=== PATIENT | male | born 1965 | race Two or more races ===

== ENCOUNTER 2020-05-16 15:19 | Inpatient (IN) | payer MEDICAID ==
[~2020-05-16] VITALS: Ht 165.1 cm; Wt 52.2 kg
[2020-05-16] MEDS ORDERED: IV NS 0.9% 1,000 ML BAG IV ONE (16:30)
[2020-05-16] MEDS ORDERED: KETOROLAC TROMETHAMINE INJ 30 MG/ML VIAL IV ONE (16:30)
[2020-05-16] MEDS ORDERED: ONDANSETRON HCL/PF 4 MG/2 ML VIAL IVP ONE (17:00)
[2020-05-16] MEDS ORDERED: CEFTRIAXONE 1GM BAG (ER ONLY) 1 GM/50 ML PIGGYBACK IV ONE (17:00)
[2020-05-16] MEDS ORDERED: MORPHINE SULFATE INJ 2 MG/ML DISP.SYRIN IV ONE (17:00)
[2020-05-16 17:07] LABS: BASOPHILS # (AUTO) 0.1 /CMM (0.0-0.2); BASOPHILS % (AUTO) 0.5 % (0.0-2.0); EOSINOPHILS % (AUTO) 0.1 % (0.0-6.0); HEMATOCRIT 42 % (39-51); HEMOGLOBIN 13.6 g/dL (13.5-17.5); LYMPHOCYTES # (AUTO) 1.6 /CMM (0.8-4.8); LYMPHOCYTES % (AUTO) 7.2 % (20.0-44.0); MEAN CORPUSCULAR HGB CONC 33 g/dl (31.0-36.0); MEAN CORPUSCULAR VOLUME 94 fL (80-96); MONOCYTES # (AUTO) 1.9 /CMM (0.1-1.30); MONOCYTES % (AUTO) 8.6 % (2.0-12.0); NEUTROPHILS # (AUTO) 18.3 /CMM (1.8-8.9); NEUTROPHILS % (AUTO) 83.6 % (43.0-81.0); PLATELET COUNT (AUTO) 244 /CMM (150-450); RED BLOOD CELL COUNT(AUTO) 4.42 MIL/uL (4.5-6.0); WHITE BLOOD COUNT (AUTO) 21.8 K/uL (4.3-11.0)
[2020-05-16 17:11] LABS: BILIRUBIN,URINE Negative (NEGATIVE); BLOOD, URINE Moderate Ery/uL (NEGATIVE); COLOR,URINE DARK YELLOW (YELLOW); LEUKOCYTE ESTERASE ,URINE Small (NEGATIVE); NITRITE, URINE Positive (NEGATIVE); PROTEIN,URINE 100 mg/dl (NEGATIVE); UGLUCOSE Negative (NEGATIVE); UROBILINOGEN,URINE >=8.0 EU/dL (0.2)
[2020-05-16 17:24] LABS: BACTERIA,URINE 3+ /HPF (None Seen); RBC,URINE 21-50 /HPF (0-2); SQUAMOUS EPITHELIAL CELL,UR Few /HPF (None Seen)
[2020-05-16] MEDS ORDERED: MORPHINE SULFATE INJ 4 MG/ML DISP.SYRIN ONE (17:24)
[2020-05-16] MEDS ORDERED: ONDANSETRON HCL/PF 4 MG/2 ML VIAL ONE (17:24)
[2020-05-16] MEDS ORDERED: CEFTRIAXONE 1GM BAG (ER ONLY) 50 ML IV ONE (17:24)
[2020-05-16] MEDS ORDERED: KETOROLAC TROMETHAMINE 15 MG/ML VIAL ONE (17:24)
[2020-05-16 17:30] LABS: ALBUMIN 3.6 g/dL (3.4-5.0); BILIRUBIN,DIRECT 0.3 mg/dL (0.0-0.2); BILIRUBIN,TOTAL 1.5 mg/dL (0.2-1.0); CREATININE 1.1 mg/dL (0.6-1.3); POTASSIUM 3.9 mmol/L (3.5-5.1)
[2020-05-16] MEDS ORDERED: IV NS 0.9% 250 ML IV ONE (17:39)
[2020-05-16] MEDS ORDERED: IOHEXOL-300 100 ML VIAL IV ONE (17:39)
[2020-05-16] MEDS ORDERED: DOXYCYCLINE 100 MG in IV D5W 100 ML IV ONE (19:00)
--- NOTE | 2020-05-16 19:05 | NUR ---
PT CAME TO THE ER EARLIER TODAY FOR TESTICULAR PAIN AND SWELLING. PT DENIES PAIN AT THIS TIME. PT AAOX4, VSS, RESPIRATIONS EVEN AND UNLABORED ON RA W/ NAD NOTED. PT CONNECTED TO THE MONITOR AND POX
[2020-05-16] MEDS ORDERED: DOXYCYCLINE 100 MG VIAL ONE (19:28)
[2020-05-16] MEDS ORDERED: MORPHINE SULFATE INJ 2 MG/ML DISP.SYRIN IV PRN (20:30)
[2020-05-16] MEDS ORDERED: ONDANSETRON HCL/PF 4 MG/2 ML VIAL IVP PRN (20:30)
[2020-05-16] MEDS ORDERED: ACETAMINOPHEN 325 MG TABLET PO PRN (20:30)
[2020-05-16] MEDS ORDERED: Z GUARD REMEDY 2 OZ OINT TP PRN (20:30)
[2020-05-16] MEDS ORDERED: MAG HYDROX/AL HYDROX/SIMETH 30 ML UDC PO PRN (20:30)
[2020-05-16] MEDS ORDERED: MAGNESIUM HYDROXIDE 30 ML UDC PO PRN (20:30)
[2020-05-16 22:00] VITALS: BP 115/65
--- NOTE | 2020-05-16 22:03 | NUR ---
PT TRANSFERRED TO ROOM IN STABLE CONDITION
--- NOTE | 2020-05-16 22:10 | NUR ---
MS MONUMENT LETTERER NOTES: ADMITTED A 54YO PLEASANT MALE FROM HOME THROUGH OUR ED FOR SCROTAL SWELLING. PATIENT DIAGNOSED TO HAVE ORCHITIS PER ULTRASOUND. PATIENT DID NOT REPORT OF ANY PAIN AT THIS TIME HE HAD THE PAIN MEDS FROM THE ER. IVF OF NS AT 75ML/HR STARTED. ADMISSION ASSESSMENTS DONE. PROVIDED PATIENT WITH SNACKS AND FLUIDS TOLERATED. ALL OTHER ORDERS BY DR. VALDOVINOS CARRIED OUT. PATIENT PARTNER AND [facility] ILA [phone] UPDATED OF PATIENT'S STATUS. INSTRUCTED HIM TO FAX THE PATIENT'S ADVANCE DIRECTIVES. WILL MONITOR PATIENT
[2020-05-16] MEDS: IV NS 0.9% 1,000 ML IV PRN (22:52)
[2020-05-17] VITALS: BP 127/72
--- NOTE | 2020-05-17 06:19 | NUR ---
MS RN CLOSING NOTES: PATIENT ASLEEP SOUNDLY IN THE ROOM, IVF ON GOING. NO COMPLAINS OF PAIN AT THIS TIME, WILL MONITOR PATIENTS PAIN STATUS. PATIENT AGREED TO PROVIDE HIS MEDICATION LIST FOR RECON. WILL ENDORSE PATIENT DAY SHIFT NURSE FOR CONTINUITY OF CARE.
[2020-05-17 06:22] LABS: BASOPHILS # (AUTO) 0.1 /CMM (0.0-0.2); BASOPHILS % (AUTO) 0.4 % (0.0-2.0); EOSINOPHILS % (AUTO) 0.7 % (0.0-6.0); HEMATOCRIT 36 % (39-51); HEMOGLOBIN 12.2 g/dL (13.5-17.5); LYMPHOCYTES # (AUTO) 1.5 /CMM (0.8-4.8); LYMPHOCYTES % (AUTO) 9.7 % (20.0-44.0); MEAN CORPUSCULAR HGB CONC 34 g/dl (31.0-36.0); MEAN CORPUSCULAR VOLUME 93 fL (80-96); MONOCYTES # (AUTO) 1.3 /CMM (0.1-1.30); MONOCYTES % (AUTO) 8.2 % (2.0-12.0); PLATELET COUNT (AUTO) 204 /CMM (150-450); RED BLOOD CELL COUNT(AUTO) 3.88 MIL/uL (4.5-6.0)
[2020-05-17 06:42] LABS: CALCIUM, SERUM 8.1 mg/dL (8.5-10.1); CREATININE 1.2 mg/dL (0.6-1.3); MAGNESIUM 2.1 mg/dL (1.8-2.4); POTASSIUM 3.9 mmol/L (3.5-5.1)
[2020-05-17] MEDS ORDERED: RITO100T PO (06:58)
[2020-05-17] MEDS ORDERED: DARU800T2 PO (06:58)
[2020-05-17] MEDS ORDERED: EMTR1TAB12 PO (06:58)
--- NOTE | 2020-05-17 07:45 | NUR ---
RN OPENING NOTE: RECEIVED PT LYING IN BED. NO ACUTE DISTRESS NOTED. PT A+OX3, ABLE TO MAKE NEEDS KNOWN. DENIES PAIN AT PRESENT TIME. INDEPENDENT WITH REPOSITIONING IN BED AND PO INTAKE. CONTINENT WITH URINAL AT BEDSIDE. SHAD CLOUDY URINE. RIGHT AC # 20 INFUSING AT 75 CC/HR. NO S/SX OF INFILTRATION OR INFECTION AT RIGHT. BED IN LOW AND LOCKED POSITION WITH SIDE RAILS UP X 2 and call light within reach.
[2020-05-17 08:00] VITALS: BP 121/92
[2020-05-17] MEDS: DOXYCYCLINE 100 MG in IV D5W 100 ML IV SCH ×2 (09:26→21:08)
[2020-05-17 16:00] VITALS: BP 130/71
[2020-05-17] MEDS ORDERED: K PHOS NEUTRAL 250 MG TABLET PO ONE (16:00)
[2020-05-17] MEDS: CEFTRIAXONE 1 G in IV D5W 50 ML IV SCH (17:23)
[2020-05-17] MEDS: IV NS 0.9% 1,000 ML IV PRN (18:48)
--- NOTE | 2020-05-17 19:25 | NUR ---
TELERN FULLY AWAKE, DENIES ANY DISCOMFORTS. PRESENT FLUIDS INFUSING WELL VIA LEFT FA. PLAN OF CARE DISCUSSED WITH PATIENT. SAFETY PRECAUTIONS EMPHASIZED. CALL LIGHT USE REVIEWED WITH PATIENT REMINDED TO CALL STAFF FOR ANY ASSISTANCE OR DISCOMFORTS.
[2020-05-17 20:00] VITALS: BP 106/75
--- NOTE | 2020-05-17 20:00 | NUR ---
RN NOTE: SPOKE WITH ILA, PT'S DPOA. ILA TO BRING IN HOME MEDICATIONS IN AM. ILA ALSO EMPHASIZED THE NEED FOR PT TO RECEIVE FLU VACCINE WHILE IN HOSPITAL.
[2020-05-17 20:30] VITALS: BP 106/75
[2020-05-17] MEDS: HYDROCODONE/APAP 5/325MG TABLET PO PRN (21:22)
--- NOTE | 2020-05-18 01:00 | NUR ---
TELERN WANTED TO SIGN OUT AMA. EXPLAINED RISK, DETERMINED TO LEAVE. AGREED TO STAY AND BE TRANSFERRED TO ANOTHER QUIET ROOM. SIGNED WAIVER FOR SMOKE. WENT OUT TO SMOKE FOR FEW MINUTES WITH SENIOR SITE MANAGER.
--- NOTE | 2020-05-18 02:10 | NUR ---
TELERN SLEEPING IVF CONTINUED.
--- NOTE | 2020-05-18 07:00 | NUR ---
MSRN STABLE. NO NEEDS MADE.
--- NOTE | 2020-05-18 07:26 | NUR ---
MS RN NOTES PATIENT RECEIVED IN BED SLEEPING EASILY AWAKEN BY NAME AND LIGHT TOUCH, ALERT AND ORIENTED X 4. ON ROOM AIR WITH NO SIGNS OF RESPIRATORY DISTRESS WITH EVEN NON-LABORED BREATHING, AND NO SOB NOTED. IV ACCESS INTACT AND PATENT. SKIN WARM AND DRY TO TOUCH. PATIENT PRESENTING WITH NO PAIN OR DISCOMFORT AT THIS TIME. SAFETY PRECAUTIONS IMPLEMENTED WITH BED LOCKED, BED ALARM ON, BED IN THE LOWEST POSITION, BILATERAL SIDE RAILS UP, AND CALL LIGHT WITHIN EASY REACH OF THE PATIENT. WILL CONTINUE TO MONITOR PATIENT.
[2020-05-18 08:00] VITALS: BP 114/69
[2020-05-18 08:41] LABS: CALCIUM, SERUM 8.8 mg/dL (8.5-10.1); PHOSPHORUS 2.7 mg/dL (2.5-4.9)
[2020-05-18] MEDS: DOXYCYCLINE 100 MG in IV D5W 100 ML IV SCH ×2 (08:46→20:57)
[2020-05-18] MEDS: IV NS 0.9% 1,000 ML IV PRN (08:47)
[2020-05-18 16:00] VITALS: BP 138/80
[2020-05-18] MEDS: CEFTRIAXONE 1 G in IV D5W 50 ML IV SCH (16:34)
--- NOTE | 2020-05-18 18:25 | NUR ---
MS RN NOTES PATIENT'S HAD SOMEONE DROP OFF HIS HOME MEDICATIONS DUE TO DRUG NOT BEING AVAILABLE.
--- NOTE | 2020-05-18 18:31 | NUR ---
MS RN NOTES PATIENT IN BED RESTING COMFORTABLY, ALERT AND ORIENTED X 4. ON ROOM AIR WITH NO SIGNS OF RESPIRATORY DISTRESS WITH EVEN NON-LABORED BREATHING, AND NO SOB NOTED. IV ACCESS INTACT AND PATENT. SKIN KEPT CLEAN, WARM AND DRY TO TOUCH. PATIENT PRESENTING WITH NO PAIN OR DISCOMFORT AT THIS TIME. MET ALL OF PATIENT'S NEEDS. SAFETY PRECAUTIONS IMPLEMENTED WITH BED LOCKED, BED ALARM ON, BED IN THE LOWEST POSITION, BILATERAL SIDE RAILS UP, AND CALL LIGHT WITHIN EASY REACH OF THE PATIENT. WILL ENDORSE PLAN OF CARE TO UPCOMING RN.
--- NOTE | 2020-05-18 19:55 | NUR ---
RN NOTES: PT. RESTING HIS BED AWAKE, DENIES ANY DISCOMFORTS. PRESENT FLUIDS INFUSING WELL VIA LEFT FA. PLAN OF CARE DISCUSSED WITH PATIENT. SAFETY PRECAUTIONS EMPHASIZED. CALL LIGHT USE REVIEWED WITH PATIENT REMINDED TO CALL STAFF FOR ANY ASSISTANCE OR DISCOMFORTS.
[2020-05-18 20:00] VITALS: BP 126/78
[2020-05-18 20:20] VITALS: BP 123/78
[2020-05-18] MEDS: PREZISTA 800 MG PO SCH (21:15)
[2020-05-18] MEDS: TRUVADA PO SCH (21:15)
[2020-05-18] MEDS: NORVIR 100 MG PO SCH (21:15)
--- NOTE | 2020-05-18 22:46 | NUR ---
RN NOTES: PT. REFUSED IV 0.9% NS ,ENCOURAGED X3 RISKS AND BENEFITS EXPLINED , CHARGE NURSE MADE AWRE ,PER PT. I NO NEEDS ANY IV FLUIDS I AM OK ,PT. STRONGLY REDUSED ,WILL CONTINUITY WITH CARE.
[2020-05-18] MEDS: HYDROCODONE/APAP 5/325MG TABLET PO PRN (23:35)
--- NOTE | 2020-05-19 06:48 | NUR ---
MS RN CLOSING NOTES: PATIENT ASLEEP SOUNDLY IN THE ROOM, NO ACUTE DISTRESS NOTED , NO CHANGE OF CONDITION NOTED, NO COMPLAINS OF PAIN AT THIS TIME, WILL MONITOR PATIENTS PAIN STATUS. WILL ENDORSE PATIENT DAY SHIFT NURSE FOR CONTINUITY OF CARE.
--- NOTE | 2020-05-19 07:35 | NUR ---
MS RN NOTES PATIENT RECEIVED IN BED SLEEPING EASILY AWAKEN BY NAME AND LIGHT TOUCH, ALERT AND ORIENTED X 4. ON ROOM AIR WITH NO SIGNS OF RESPIRATORY DISTRESS WITH EVEN NON-LABORED BREATHING, AND NO SOB NOTED. IV ACCESS INTACT AND PATENT. PATIENT CURRENTLY REFUSING IV FLUIDS, ENCOURAGED AND BENEFITS OF IV FLUIDS, PATIENT AGREED, AND CURRENTLY INFUSING IV NORMAL SALINE AT 75 ml/hr. SKIN WARM AND DRY TO TOUCH. PATIENT PRESENTING WITH NO PAIN OR DISCOMFORT AT THIS TIME. SAFETY PRECAUTIONS IMPLEMENTED WITH BED LOCKED, BED ALARM ON, BED IN THE LOWEST POSITION, BILATERAL SIDE RAILS UP, AND CALL LIGHT WITHIN EASY REACH OF THE PATIENT. WILL CONTINUE TO MONITOR PATIENT.
[2020-05-19 08:00] VITALS: BP 138/71
[2020-05-19] MEDS: PREZISTA 800 MG PO SCH (09:00)
[2020-05-19] MEDS: NORVIR 100 MG PO SCH (09:00)
[2020-05-19] MEDS: TRUVADA PO SCH (09:00)
[2020-05-19] MEDS: DOXYCYCLINE 100 MG in IV D5W 100 ML IV SCH (09:05)
[2020-05-19] MEDS: IV NS 0.9% 1,000 ML IV PRN (09:06)
[2020-05-19] MEDS ORDERED: DOXY100C41 PO (14:54)
[2020-05-19] MEDS: CEFTRIAXONE 1 G in IV D5W 50 ML IV SCH (16:41)
--- NOTE | 2020-05-19 18:10 | NUR ---
VP INTEGRITY NOTES PATIENT ALERT AND ORIENTED X 4. ON ROOM AIR WITH NO SIGNS OF RESPIRATORY DISTRESS WITH EVEN NON-LABORED BREATHING, AND NO SOB NOTED. IV ACCESS REMOVED, CATHETER TIP INTACT AND APPLIED PRESSURE TO SITE. VITAL SIGNS WNL. SKIN KEPT CLEAN, WARM AND DRY TO TOUCH. PATIENT PRESCRIPTION SENT TO PREFERRED PHARMACY AND PATIENT WILL STUDIO RECEPTIONIST NEW MEDICATION. ID BAND REMOVED. EXIT CARE PROVIDED. PATIENT ACCOUNTED FOR ALL BELONGINGS. PATIENT LEFT UNIT IN WHEEL CHAIR AND LEFT HOSPITAL IN PRIVATE CAR.
== END 2020-05-19 18:32 | disposition home or self-care (01) | DRG 720 ==
LOC: ER 15:20 → MED 21:18
PROVIDERS: ADMIT Internal Medicine; ATTEND Nurse Practitioner Acute Care
DX: A41.9 Sepsis, unspecified organism (principal); E87.2 Acidosis; N45.3 Epididymo-orchitis; E83.51 Hypocalcemia; E83.39 Other disorders of phosphorus metabolism; E27.8 Other specified disorders of adrenal gland; D72.829 Elevated white blood cell count, unspecified; E80.6 Other disorders of bilirubin metabolism; A54.9 Gonococcal infection, unspecified; N39.0 Urinary tract infection, site not specified; Z20.828 Contact with and (suspected) exposure to other viral communicable diseases; F17.200 Nicotine dependence, unspecified, uncomplicated
CPT/HCPCS: 36415; 71045-TC; 74178; 76870-TC; 80048-TC; 80076-TC; 81001; 83605-TC; 83690-TC; 83735-TC; 84100-TC; 85025-TC; 87040-TC; 87081-TC; 87086-TC; 87491; 87591; C9803; G0378; J0696; J1885; J2270; J2405; J3490; J7030; J7050; J7060; Q9967

== ENCOUNTER 2022-03-27 11:03 | Emergency (ER) | payer MEDICAID, OTHER ==
[~2022-03-27] VITALS: Ht 165.1 cm; Wt 52.6 kg
[~2022-03-27 11:03] MED LIST: DARU800T2 PO; DOXY-326 PO; EMTR1TAB12 PO; RITO100T PO
[2022-03-27] MEDS ORDERED: FLUORESCEIN SODIUM OPHTH 1 EA STRIP OP ONE (11:30)
[2022-03-27] MEDS ORDERED: TETRACAINE HCL 2% OPHTHALIC 30 ML BOTTLE EACHEYE ONE (11:30)
--- NOTE | 2022-03-27 11:30 | NUR ---
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 PT A&OX4, ABLE TO AMBULATE W/O ASSISTANCE.
[2022-03-27] MEDS ORDERED: FLUORESCEIN SODIUM OPHTH 1 EA STRIP ONE (11:35)
--- NOTE | 2022-03-27 11:42 | NUR ---
SEEN BY , GAVE TETRACAINE 2%. WILL RETURN SOON.
--- NOTE | 2022-03-27 12:36 | NUR ---
IRRIGATED EYES BILATERALLY PER MD ORDER. STOPPED WHEN PT REQUESTED CONSISTENT WITH MD RECOMMENDATION TO IRRIGATE TOLERATED.
[2022-03-27] MEDS ORDERED: ERYT3.5O9 EACHEYE (12:47)
[2022-03-27] MEDS ORDERED: CIPR2.5D14 EACHEYE (12:49)
[2022-03-27 13:18] VITALS: BP 128/88
--- NOTE | 2022-03-27 13:20 | NUR ---
Patient discharged to home in stable condition. Written and verbal after care instructions given. Patient verbalizes understanding of instruction.
== END 2022-03-27 13:20 | disposition home or self-care (01) ==
LOC: ER 11:07
DX: S05.02XA Injury of conjunctiva and corneal abrasion without foreign body, left eye, initial encounter (principal); H57.13 Ocular pain, bilateral; E78.00 Pure hypercholesterolemia, unspecified; F17.200 Nicotine dependence, unspecified, uncomplicated; Z79.899 Other long term (current) drug therapy; X58.XXXA Exposure to other specified factors, initial encounter; Y93.89 Activity, other specified; Y92.89 Other specified places as the place of occurrence of the external cause; Y99.8 Other external cause status
CPT/HCPCS: 99283; J7030

== ENCOUNTER 2025-05-31 21:40 | Emergency (ER) | payer OTHER ==
[~2025-05-31] VITALS: Ht 165.1 cm; Wt 54.4 kg
[~2025-05-31 21:40] MED LIST changes: +CIPR2.5D14 EACHEYE; +ERYT3.5O9 EACHEYE
[2025-05-31 22:22] VITALS: BP 136/83; TEMP 98.8; O2SAT 97
[2025-05-31] MEDS ORDERED: TOBR5DRO2 EACHEYE (22:49)
[2025-05-31] MEDS ORDERED: IBUP-1490 PO (22:49)
== END 2025-05-31 23:00 | disposition home or self-care (01) ==
LOC: ER 21:48
DX: H10.9 Unspecified conjunctivitis (principal); E78.00 Pure hypercholesterolemia, unspecified; F17.200 Nicotine dependence, unspecified, uncomplicated; Z79.624 Long term (current) use of inhibitors of nucleotide synthesis